=== PATIENT | male | born 1975 | race Caucasian/White ===

== ENCOUNTER 2021-03-18 13:52 | Emergency (ER) | payer OTHER, MEDICARE ==
[~2021-03-18] VITALS: Ht 175.3 cm; Wt 124.3 kg
[~2021-03-18 13:52] MED LIST: KEFLEX250 MG PO; VOLTAREN **OUT75 MG PO
== END 2021-03-18 16:00 | disposition home or self-care (01) ==
LOC: EDBD 13:52 → FER 13:52
DX: S61.213A Laceration without foreign body of left middle finger without damage to nail, initial encounter (principal); I10 Essential (primary) hypertension; W27.0XXA Contact with workbench tool, initial encounter; Y92.009 Unspecified place in unspecified non-institutional (private) residence as the place of occurrence of the external cause
CPT/HCPCS: 73140